=== PATIENT | female | born 1980 | race Two or more races ===

== ENCOUNTER 2019-02-04 14:32 | Emergency (ER) | payer OTHER, MEDICAID ==
[2019-02-04] MEDS ORDERED: ACETAMINOPHEN 325 MG TABLET PO ONE (16:09)
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
--- NOTE | 2019-02-04 17:19 | RADIOLOGY REPORT (SQ) ---
EXAM DESCRIPTION: SHOULDER RIGHT 2 OR MORE VIEWS COMPLETED DATE/TIME: 02/04/2019 4:58 pm REASON FOR STUDY: pain COMPARISON: None. NUMBER OF VIEWS: Three views. TECHNIQUE: Internal rotation, external rotation, and Y view images acquired of the right shoulder. LIMITATIONS: None. FINDINGS: MINERALIZATION: Normal. BONES: No acute fracture or dislocation. No worrisome bone lesions. JOINTS: No dislocation. VISUALIZED LUNGS AND RIBS: No pneumothorax. No rib fracture. SOFT TISSUES: No radiopaque foreign body. OTHER: No other significant finding. IMPRESSION: NO RADIOGRAPHIC EVIDENCE OF ACUTE INJURY. TECHNICAL DOCUMENTATION: JOB ID: [id number] [place]-72 2010 [employer]- All Rights Reserved Reading location - IP/workstation name: [email or web address]
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
[2019-02-04 17:41] VITALS: BP 106/67
== END 2019-02-04 17:44 | disposition home or self-care (01) ==
LOC: ER 14:32
DX: M54.2 Cervicalgia (principal); M25.511 Pain in right shoulder; M54.5 Low back pain; V43.62XA Car passenger injured in collision with other type car in traffic accident, initial encounter; Y92.481 Parking lot as the place of occurrence of the external cause
CPT/HCPCS: 72110; 72125; 99284

== ENCOUNTER 2019-04-21 20:16 | Emergency (ER) | payer MEDICAID, OTHER ==
[2019-04-21 20:43] VITALS: BP 114/68
--- NOTE | 2019-04-21 21:51 | ER Document Report ---
ED Medical Screen (RME) - General Chief Complaint: Shortness Of Breath Stated Complaint: DIFFICULTY BREATHING Time Seen by Provider: 04/21/19 21:49 Mode of Arrival: Ambulatory Information source: Patient Notes: 38-year-old female presented to ED for cough cold congestion runny nose and pain with cough. She does have a history of asthma and anxiety. She states she has had breast augmentation liposuction and 3 C-sections. She states she has not had any fevers. She states she is called her doctor multiple times and they told her to just go to the ER. She is alert oriented respirations regular and unlabored speaking in full sentences walks with a even steady gait. Patient understands Botswanan but does not speak Botswanan well. I have greeted and performed a rapid initial assessment of this patient. A comprehensive ED assessment and evaluation of the patient, analysis of test results and completion of medical decision making process will be conducted by an additional ED providers. TRAVEL OUTSIDE OF THE [place] IN LAST 30 DAYS: No - Related Data Allergies/Adverse Reactions: shellfish derived Allergy (Verified 02/04/19 16:14) Past Medical History Renal/ Medical History: Denies: Hx Peritoneal Dialysis Musculoskeltal Medical History: Reports Hx Arthritis Physical Exam - Vital signs Vitals: Temp Pulse Resp BP Pulse Ox 97.7 F 93 18 114/68 97 04/21/19 20:42 04/21/19 20:42 04/21/19 20:42 04/21/19 20:42 04/21/19 20:42 Course - Vital Signs Vital signs: Temp Pulse Resp BP Pulse Ox 97.7 F 93 18 114/68 97 04/21/19 20:42 04/21/19 20:42 04/21/19 20:42 04/21/19 20:42 04/21/19 20:42
--- NOTE | 2019-04-21 22:44 | ER Document Report ---
ED General - General Chief Complaint: Shortness Of Breath Stated Complaint: DIFFICULTY BREATHING Time Seen by Provider: 04/21/19 21:49 Mode of Arrival: Ambulatory Notes: Patient is a 38-year-old female with asthma that presents to the emergency department for chief complaint of cough and shortness of breath. Patient's been having symptoms for 7 or 8 days, with associated cough, runny nose and congestion. Denies any any fevers. She has been taking DayQuil with some relief of her symptoms, but then it comes right back. She is been using her inhaler, without much improvement, she is on albuterol. Denies any sick contacts that she is aware of, denies any chest pain at this time, and her cough has been nonproductive. Denies any nausea, vomiting, abdominal pain dysuria hematuria, no other complaints at this time. Past Medical History: Anxiety, asthma Past Surgical History: , liposuction, breast augmentation Social History: Denies current tobacco, alcohol or drug use. Family History: Reviewed and noncontributory for presenting illness Allergies: Reviewed, see documented allergy list. REVIEW OF SYSTEMS: Other than noted above, the 12 point review of systems was reviewed with the patient and were negative, all pertinent findings are included in the HPI. PHYSICAL EXAMINATION: Vital signs reviewed, nursing noted reviewed. GENERAL: Well-appearing, well-nourished and in no acute distress. HEAD: Atraumatic, normocephalic. EYES: Eyes appear normal, extraocular movements intact, sclera anicteric, conjunctiva are normal. ENT: nares patent, oropharynx clear without exudates. Moist mucous membranes. NECK: Normal range of motion, supple without lymphadenopathy LUNGS: Dry cough noted on exam, and there is mild expiratory wheezing, at the end of expiration, no increased work of breathing. HEART: Regular rate and rhythm without murmurs ABDOMEN: Soft, nontender, normoactive bowel sounds. No rebound, guarding, or rigidity. No masses appreciated. EXTREMITIES: Nontender, good range of motion, no pitting or edema. NEUROLOGICAL: No focal neurological deficits. Moves all extremities spontaneously Motor and sensory grossly intact on exam. PSYCH: Normal mood, normal affect. SKIN: Warm, Dry, normal turgor, no rashes or lesions noted on exposed skin TRAVEL OUTSIDE OF THE [place] IN LAST 30 DAYS: No - Related Data Allergies/Adverse Reactions: shellfish derived Allergy (Verified 02/04/19 16:14) Past Medical History - General Information source: Patient - Social History Smoking Status: Never Smoker Family History: Reviewed & Not Pertinent Renal/ Medical History: Denies: Hx Peritoneal Dialysis Musculoskeletal Medical History: Reports Hx Arthritis Physical Exam - Vital signs Vitals: Temp Pulse Resp BP Pulse Ox 97.7 F 93 18 114/68 97 04/21/19 20:42 04/21/19 20:42 04/21/19 20:42 04/21/19 20:42 04/21/19 20:42 Course - Re-evaluation Re-evalutation: Patient seen and examined vital signs reviewed. Laboratory data and/or imaging were ordered as appropriate for the patient's presenting symptoms and complaint, with consideration of any critical or life threatening conditions that may be associated with their obtained history and exam as noted above. Patient was treated with DuoNeb breathing treatments, and p.o. steroid Results were reviewed when available and demonstrated negative chest x-ray and blood work The patient was re-evaluated and was stable, lung sounds improved Evaluation was most consistent with URI, mild exacerbation of asthma, advised prednisone therapy, follow-up with her primary care, and to use her albuterol inhaler, every 4 hours if needed. Results were discussed with the patient at this point, after careful consideration I feel that that patient can be discharged from the emergency department, the patient was educated treatments and reasons to return to the emergency department based on their presumed diagnosis as noted above, they were advised to followup with a primary care physician in 2-3 days. Patient was agreeable to plan of care. *Note is created using voice recognition software and may contain spelling, sy ntax or grammatical errors. Laboratory 04/22/19 04/22/19 04/22/19 00:13 00:13 00:13 WBC 10.4 RBC 4.24 Hgb 11.9 L Hct 36.0 MCV 85 MCH 28.1 MCHC 33.1 RDW 14.2 H Plt Count 331 Lymph % (Auto) 26.6 Bonner % (Auto) 5.9 Eos % (Auto) 10.0 H Baso % (Auto) 0.5 Absolute Neuts (auto) 5.9 Absolute Lymphs (auto) 2.8 Absolute Monos (auto) 0.6 Absolute Eos (auto) 1.0 H Absolute Basos (auto) 0.1 Seg Neutrophils % 57.0 Sodium 138.9 Potassium 3.9 Chloride 103 Carbon Dioxide 28 Anion Gap 8 BUN 12 Creatinine 0.72 Est GFR ( Amer) > 60 Est GFR (MDRD) Non-Af > 60 Glucose 122 H Calcium 9.5 Serum HCG, Qual NEGATIVE Chest X-Ray 04/21/19 21:49 IMPRESSION: 1. No acute cardiothoracic abnormality. - Vital Signs Vital signs: Temp Pulse Resp BP Pulse Ox 97.7 F 93 18 114/68 97 04/21/19 20:42 04/21/19 20:42 04/21/19 20:42 04/21/19 20:42 04/21/19 20:42 - Laboratory Result Diagrams: 04/22/19 00:13 04/22/19 00:13 Laboratory results interpreted by me: 04/22/19 04/22/19 00:13 00:13 Hgb 11.9 L RDW 14.2 H Eos % (Auto) 10.0 H Absolute Eos (auto) 1.0 H Glucose 122 H Discharge - Discharge Clinical Impression: URI (upper respiratory infection) Qualifiers: URI type: unspecified URI Qualified Code(s): J06.9 - Acute upper respiratory infection, unspecified Asthma exacerbation Qualifiers: Asthma severity: unspecified severity Asthma persistence: unspecified Qualified Code(s): J45.901 - Unspecified asthma with (acute) exacerbation Condition: Stable Disposition: HOME, SELF-CARE Instructions: Upper Respiratory Illness ([facility]), Asthma ([facility]) Additional Instructions: Please return to the emergency department if your symptoms are worsening or not improving, please take the prescribed prednisone as directed, for the next 5 days, and follow-up with your primary care physician. Please use your albuterol inhaler, 2 puffs, 3 times daily for the next 5 days, and then every 4 hours as needed. Prescriptions: Prednisone 40 mg PO DAILY #20 tablet Referrals: MIRIAM VARGAS MD [ACTIVE STAFF] - Follow up in 3-5 days (or your primary care. ) Print Language: Tamazight
[2019-04-21] MEDS ORDERED: IPRATROPIUM/ALBUTEROL 0.5-2.5 MG/3 ML AMPUL NEB ONE (22:58)
[2019-04-21] MEDS ORDERED: PREDNISONE 20 MG TABLET PO ONE (22:59)
--- NOTE | 2019-04-21 23:25 | RADIOLOGY REPORT (SQ) ---
EXAM DESCRIPTION: [facility]: XR CHEST 2 VIEWS Views: 2 CLINICAL HISTORY: 38 years Female, cough congestion times fa week COMPARISON: None. FINDINGS: The lungs are clear. No pneumothorax or significant pleural effusion. Cardiomediastinal silhouette is within normal limits. Bony structures are unremarkable for age. IMPRESSION: 1. No acute cardiothoracic abnormality.
[2019-04-22 00:33] LABS: ABSOLUTE MONOCYTES (AUTO) 0.6 10^3/uL (0.1-1.4); MEAN CORPUSCULAR HGB CONC 33.1 g/dL (32.0-36.0); TOTAL CELLS COUNTED % (AUTO) 100 %
[2019-04-22 00:37] LABS: ABSOLUTE BASOPHILS # (AUTO) 0.1 10^3/uL (0.0-0.2); ABSOLUTE LYMPHOCYTES (AUTO) 2.8 10^3/uL (0.5-4.7); ABSOLUTE NEUT (AUTO) 5.9 10^3/uL (1.7-8.2); BASOPHILS % (AUTO) 0.5 % (0-2); HEMOGLOBIN 11.9 g/dL (12.0-15.5); LYMPHOCYTES % (AUTO) 26.6 % (13-45); MEAN CORPUSCULAR HEMOGLOBIN 28.1 pg (27.0-33.4); MEAN CORPUSCULAR VOLUME 85 fl (80-97); MONOCYTES % (AUTO) 5.9 % (3-13); PLATELET COUNT 331 10^3/uL (150-450); RED BLOOD COUNT 4.24 10^6/uL (3.72-5.28); RED CELL DISTRIBUTION WIDTH 14.2 % (11.5-14.0); WHITE BLOOD COUNT 10.4 10^3/uL (4.0-10.5)
[2019-04-22 00:52] LABS: ANION GAP 8 (5-19); BLOOD UREA NITROGEN 12 mg/dL (7-20); CALCIUM 9.5 mg/dL (8.4-10.2); CARBON DIOXIDE 28 mmol/L (22-30); CHLORIDE 103 mmol/L (98-107); GLUCOSE 122 mg/dL (75-110); POTASSIUM 3.9 mmol/L (3.6-5.0)
== END 2019-04-22 01:40 | disposition home or self-care (01) ==
LOC: ER 20:16
DX: J45.901 Unspecified asthma with (acute) exacerbation (principal); J06.9 Acute upper respiratory infection, unspecified; R06.02 Shortness of breath; R05 Cough; R09.89 Other specified symptoms and signs involving the circulatory and respiratory systems; R09.81 Nasal congestion
CPT/HCPCS: 36415; 84703; 85025; 80048; 71046; J7512; J7620; 94640; 99285

== ENCOUNTER 2019-05-06 12:24 | Emergency (ER) | payer SELFPAY ==
[2019-05-06] MEDS ORDERED: IPRATROPIUM/ALBUTEROL 0.5-2.5 MG/3 ML AMPUL NEB ONE (13:10)
--- NOTE | 2019-05-06 13:14 | ER Document Report ---
ED Medical Screen (RME) - General Chief Complaint: Chest Pain Stated Complaint: CHEST PAIN Time Seen by Provider: 05/06/19 13:06 Notes: Patient is a 38-year-old female with asthma that presents to the emergency department for chief complaint of cough and shortness of breath. Patient's been having symptoms for 3 weeks with associated cough, runny nose and congestion. Denies any any fevers. She was seen here on April 21 and had a negative chest x-ray and was given a course of prednisone. She states in the interval time. She has not had any improvements of her symptoms. She has been using her albuterol inhaler with minimal to no improvement. Denies any sick contacts that she is aware of, denies any chest pain at this time, and her cough is dry. Denies any nausea, vomiting, abdominal pain dysuria hematuria, no other complaints at this time. [employer] wildlife protector was used EXAM: Well-appearing in no acute distress, nontoxic. Regular rate and cardiac rhythm, mild inspiratory wheezing heard in the right middle lobe all other fie lds were clear I have greeted and performed a rapid initial assessment of this patient. A comprehensive ED assessment and evaluation of the patient, analysis of test results and completion of medical decision making process will be conducted by an additional ED providers. TRAVEL OUTSIDE OF THE [place] IN LAST 30 DAYS: No - Related Data Allergies/Adverse Reactions: shellfish derived Allergy (Verified 02/04/19 16:14) Past Medical History - Social History Chew tobacco use (# tins/day): No Frequency of alcohol use: None Drug Abuse: None Renal/ Medical History: Denies: Hx Peritoneal Dialysis Musculoskeltal Medical History: Reports Hx Arthritis Physical Exam - Vital signs Vitals: Temp Pulse BP Pulse Ox 98.5 F 94 123/67 98 05/06/19 12:39 05/06/19 12:39 05/06/19 12:39 05/06/19 12:39 Course - Vital Signs Vital signs: Temp Pulse Resp BP Pulse Ox 98.5 F 94 123/67 98 05/06/19 12:39 05/06/19 12:39 05/06/19 12:39 05/06/19 12:39
--- NOTE | 2019-05-06 14:43 | RADIOLOGY REPORT (SQ) ---
EXAM DESCRIPTION: CHEST 2 VIEWS COMPLETED DATE/TIME: 05/06/2019 2:32 pm REASON FOR STUDY: cough and wheezing x 3 weeks COMPARISON: 04/21/2019 EXAM PARAMETERS: NUMBER OF VIEWS: two views TECHNIQUE: Digital Frontal and Lateral radiographic views of the chest acquired. RADIATION DOSE: NA LIMITATIONS: none FINDINGS: LUNGS AND PLEURA: No opacities, masses or pneumothorax. No pleural effusion. MEDIASTINUM AND HILAR STRUCTURES: No masses or contour abnormalities. HEART AND VASCULAR STRUCTURES: Heart normal size. No evidence for failure. BONES: No acute findings. HARDWARE: None in the chest. OTHER: No other significant finding. IMPRESSION: NO ACUTE RADIOGRAPHIC FINDING IN THE CHEST. TECHNICAL DOCUMENTATION: JOB ID: [id number] [email or web address]- All Rights Reserved Reading location - IP/workstation name: [email or web address]
[2019-05-06] MEDS ORDERED: DEXAMETHASONE SOD PHOS INJ 10 MG/1 ML VIAL IM ONE (15:33)
--- NOTE | 2019-05-06 15:39 | ER Document Report ---
ED General - General Chief Complaint: Chest Pain Stated Complaint: CHEST PAIN Time Seen by Provider: 05/06/19 13:06 Notes: Patient is a 38-year-old female with asthma that presents to the emergency department for chief complaint of cough and shortness of breath. Patient's been having symptoms for 3 weeks with associated cough, runny nose and congestion. Denies any any fevers. She was seen here on April 21 and had a negative chest x-ray and was given a course of prednisone. She states in the interval time. She has not had any improvements of her symptoms. She has been using her albuterol inhaler with minimal to no improvement. Denies any sick contacts that she is aware of, denies any chest pain at this time, and her cough is dry. Denies any nausea, vomiting, abdominal pain dysuria hematuria, no other complaints at this time. 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 IN LAST 30 DAYS: No - Related Data Allergies/Adverse Reactions: shellfish derived Allergy (Verified 02/04/19 16:14) Past Medical History - Social History Smoking Status: Never Smoker Chew tobacco use (# tins/day): No Frequency of alcohol use: None Drug Abuse: None Family History: Reviewed & Not Pertinent Patient has suicidal ideation: No Patient has homicidal ideation: No Renal/ Medical History: Denies: Hx Peritoneal Dialysis Musculoskeletal Medical History: Reports Hx Arthritis Review of Systems - Review of Systems Constitutional: See HPI EENT: No symptoms reported Cardiovascular: See HPI Respiratory: See HPI Gastrointestinal: See HPI Genitourinary: No symptoms reported Female Genitourinary: See HPI Musculoskeletal: No symptoms reported Skin: No symptoms reported Hematologic/Lymphatic: No symptoms reported Neurological/Psychological: No symptoms reported Physical Exam - Vital signs Vitals: Temp Pulse BP Pulse Ox 98.5 F 94 123/67 98 05/06/19 12:39 05/06/19 12:39 05/06/19 12:39 05/06/19 12:39 - Notes Notes: PHYSICAL EXAMINATION: Reviewed vital signs and charting by RN GENERAL: Alert, interacts well. No acute distress. HEAD: Normocephalic, atraumatic. EYES: Pupils equal and round. Extraocular movements intact. ENT: Oral mucosa moist, tongue midline. NECK: Full range of motion. Trachea midline. LUNGS: Clear to auscultation bilaterally, no wheezes, rales, or rhonchi. No respiratory distress. HEART: Regular rate and rhythm. No murmur ABDOMEN: soft, non-tender. No distention. Bowel sounds present EXTREMITIES: Moves all 4 extremities spontaneously. No edema, No cyanosis. PSYCH: Normal affect, normal mood. SKIN: Warm, dry, normal turgor. No rashes or lesions noted. Course - Re-evaluation Re-evalutation: 05/06/19 15:35 Patient is well-appearing and lungs are clear to auscultation in all joseph. Martti translation was used and she said that the prednisone did not help her and stated that he did not feel well from it. I discussed a dexamethasone injection and the risks involved with it and the potential that it could cause similar side effects but she agreed to receiving the injection. Patient stated that she did feel minimal relief from the DuoNeb's but her lungs are clear and she is moving air. I educated her on the use of an AeroChamber and told her that she needs to follow-up with her primary doctor to consider daily the inhalational steroids. At this time she is in no distress and she is stable for discharge. - Vital Signs Vital signs: Temp Pulse Resp BP Pulse Ox 98.5 F 94 123/67 98 05/06/19 12:39 05/06/19 12:39 05/06/19 12:39 05/06/19 12:39 Discharge - Discharge Clinical Impression: Asthma Qualifiers: Asthma severity: mild Asthma persistence: intermittent Asthma complication type: uncomplicated Qualified Code(s): J45.20 - Mild intermittent asthma, uncomplicated Condition: Good Disposition: HOME, SELF-CARE Additional Instructions: You were seen in the emergency department this morning for an asthma exacerbation. After receiving breathing treatments your lungs were clear and I did not hear any wheezing. You received a steroid injection which will help with your symptoms. You will not feel the effects of the steroid for probably about 12 hours. It should then last for about 3 to 4 days. It is important that you follow-up with your primary doctor to better manage your asthma and get referral to a control operator flow coat. We do not have a control operator flow coat loss prevention supervisor today like we talked about and I apologize for that so I cannot give you direct referral. Please return to the emergency department if you develop severe shortness of breath, your throat starts to close up, severe chest pain, you pass out, or you have any other concerning symptoms. Esta maana lo vieron en el departamento de emergencias por uzma exacerbacin del asma. Despus de recibir tratamientos de respiracin, sheela pulmones estaban limpios y no escuch ningn silbido. Recibi uzma inyeccin de esteroides que ayudar con sheela sntomas. No sentir los efectos del esteroide luis aproximadamente 12 horas. Debera durar entre 3 y 4 kaur. Es importante que realice un seguimiento con prado mdico de atencin primaria para controlar mejor prado asma y obtener uzma derivacin a un neumlogo. No tenemos un neumlogo de ayse hoy gisella hablamos y me disculpo por eso, as que no puedo darle uzma derivacin directa. Regrese al departamento de emergencias si presenta dificultad para respirar severa, prado garganta comienza a cerrarse, dolor de pecho ajck, se desmaya o tiene cualquier otro sntoma preocupante.
[2019-05-06 16:01] VITALS: BP 109/70
--- NOTE | 2019-05-06 21:01 | EKG REPORT ---
SEVERITY:- NORMAL ECG - SINUS RHYTHM : Confirmed by: Teresa Gillespie MD 06-May-2019 21:00:27
== END 2019-05-06 16:05 | disposition home or self-care (01) ==
LOC: ER 12:24
DX: J45.20 Mild intermittent asthma, uncomplicated (principal); Z79.899 Other long term (current) drug therapy; R05 Cough; R06.02 Shortness of breath; R09.89 Other specified symptoms and signs involving the circulatory and respiratory systems; Z91.013 Allergy to seafood
CPT/HCPCS: 93005; 94640; 99285; 96374; 71046; 93010; J1100; J7620

== ENCOUNTER 2019-06-13 01:29 | Emergency (ER) | payer SELFPAY ==
[2019-06-13] MEDS ORDERED: ALBUTEROL SULFATE 0.083% NEB 2.5 MG/3 ML AMPUL NEB ONE (03:09)
[2019-06-13] MEDS ORDERED: IPRATROPIUM BROMIDE 0.02% NEB 0.5 MG/2.5 ML AMPUL NEB ONE (03:09)
[2019-06-13] MEDS ORDERED: PREDNISONE 20 MG TABLET PO ONE (03:09)
--- NOTE | 2019-06-13 03:32 | ER Document Report ---
ED Respiratory Problem - General Chief Complaint: Breathing Difficulty Stated Complaint: DIIFFICULTY BREATHING Information source: Patient TRAVEL OUTSIDE OF THE [place] IN LAST 30 DAYS: No - HPI Patient complains to provider of: Asthma, Cough. No: Chest pain, CHF, COPD, Hurts to breath, Short of breath, Other Onset: Yesterday Duration: Continuous. No: Better, Gone now, Intermittent episodes, Worse/persistent Initiating Event: No: Allergy, Aspiration/Choking, Exertion, Exposure to chemicals, Exposure to dust, Exposure to fumes, Exposure to mold, Exposure to smoke, Out of meds, Sports/exercise, URI, Other Quality of pain: denies: No pain, Achy, Burning, Cramping, Dull, Fullness, Pressure, Sharp, Stabbing, Throbbing, Other Severity: Mild Pain Level: Denies Context: denies: DVT, Factor V Leiden, Hx asthma, Hx CHF, Hx COPD, Malignancy, , Recent cardiac event, Recent foreign travel, Recent long distance trvl, Recent immobilization, Recent surgery, Smoker, Other Short of Breath: Mild Chest pain/discomfort: denies: Center, Constant, Heaviness, Intermittent, Left, Pain, Radiates to arm, Radiates to back, Radiates to jaw, Right, Tightness, Worse with deep breaths Cough: Nonproductive. denies: Productive, Stridor, Suspect aspiration Sputum amount: denies: None, Scant, Small, Moderate, Large, Copious Associated symptoms: Cough, Short of breath. denies: None, Ankle/leg swelling, Allergy/hay fever, Anxiety, Bloody cough, Chest pain/discomfort, Chills, Congestion, Dental decay, Difficulty breathing, Earache, Extertional dyspnea, Facial pain, Fever, Headache, Heart racing, Hoarseness, Hurts to breathe, Hyperventilation, Jaw pain, Leg/calf/joint pain, Muscle spasms, Orthopnea, PND, Runny nose, Sinus pain/pressure, Sore Throat, Sweaty, Tingling face, Tingling hands, Unable to swallow, Toothache, Wheezing, Other - Related Data Allergies/Adverse Reactions: shellfish derived Allergy (Verified 02/04/19 16:14) Home Medications: Albuterol Inhaler Past Medical History - Social History Smoking Status: Never Smoker Frequency of alcohol use: Occasional Family History: Reviewed & Not Pertinent Patient has suicidal ideation: No Patient has homicidal ideation: No Renal/ Medical History: Denies: Hx Peritoneal Dialysis Musculoskeletal Medical History: Reports Hx Arthritis Review of Systems - Review of Systems Constitutional: denies: No symptoms reported, See HPI, Chills, Diaphoresis, Fever, Malaise, Weakness, Other, Weight gain, Weight loss, Recent illness EENT: denies: No symptoms reported, See HPI, Eye pain, Eye discharge, Blurred vision, Tearing, Double vision, Ear pain, Ear discharge, Nose pain, Nose congestion, Nose discharge, Sinus pressure, Sinus discharge, Throat pain, Difficulty swallowing, Throat swelling, Mouth pain, Mouth swelling, Dental problem, Vertigo, Other Cardiovascular: denies: No symptoms reported, See HPI, Chest pain, Palpitations, Heart racing, Orthopnea, Dyspnea, Syncope, Dizziness, Lightheaded, Edema, Other, Paroxysmal Nocturnal Dysp Respiratory: Cough, Short of breath, Wheezing. denies: No symptoms reported, See HPI, Hurts to breathe, Hemoptysis, Sputum, Stridor, Other Gastrointestinal: denies: No symptoms reported, See HPI, Abdomen distended, Abdominal pain, Diarrhea, Nausea, Vomiting, Constipation, Blood streaked bowels, Poor appetite, Poor fluid intake, Blood in vomit, Black stools, Rectal bleeding, Last bowel movement, Fecal incontinence, Other Genitourinary: denies: No symptoms reported, See HPI, Burning, Dysuria, Discharge, Frequency, Flank pain, Hematuria, Incontinence, Pain, Urgency, Retention, Other Female Genitourinary: denies: No symptoms reported, See HPI, Last menstrual period, , Post menopausal, Heavy/abnormal periods, Irregular period, Vaginal bleeding, Vaginal discharge, Vaginal odor, Painful intercourse, Other -: Yes All other systems reviewed and negative Physical Exam - Vital signs Vitals: Temp Pulse Resp BP Pulse Ox 98.2 F 90 17 112/60 96 06/13/19 01:42 06/13/19 01:42 06/13/19 01:42 06/13/19 01:42 06/13/19 01:42 Notes: PHYSICAL EXAMINATION: GENERAL: Well-appearing, well-nourished and in no acute distress. HEAD: Atraumatic, normocephalic. EYES: Pupils equal round and reactive to light, extraocular movements intact, sclera anicteric, conjunctiva are normal. ENT: nares patent, oropharynx clear without exudates. Moist mucous membranes. NECK: Normal range of motion, supple without lymphadenopathy LUNGS: Wheezes heard bilaterally no rales or rhonchi mild respiratory distress HEART: Regular rate and rhythm without murmurs ABDOMEN: Soft, nontender, normoactive bowel sounds. No guarding, no rebound. No masses appreciated. EXTREMITIES: Normal range of motion, no pitting or edema. No cyanosis. NEUROLOGICAL: No focal neurological deficits. Moves all extremities spontaneously and on command. PSYCH: Normal mood, normal affect. SKIN: Warm, Dry, normal turgor, no rashes or lesions noted. Course - Vital Signs Vital signs: Temp Pulse Resp BP Pulse Ox 98.2 F 90 17 112/60 96 06/13/19 01:42 06/13/19 01:42 06/13/19 01:42 06/13/19 01:42 06/13/19 01:42 - Diagnostic Test Radiology reviewed: Image reviewed Radiology results interpreted by me: 06/13/19 04:48 X-ray read by myself in the absence of radiologist one view shows no infiltrates or effusions normal heart and mediastinum normal bony structures. - Transfer of Care Notes: 06/13/19 04:50 Note after nebulizers and steroids patient is much better she will be sent home with oral MDI and prednisone and Hycodan instructions to follow-up with her regular doctor. 06/13/19 04:57 Discharge - Discharge Clinical Impression: Bronchitis, acute, with bronchospasm Condition: Good Disposition: HOME, SELF-CARE Instructions: Bronchitis With Bronchospasm (Wheezing) ([facility]) Additional Instructions: Return if worse follow-up with your regular doctor Prescriptions: Albuterol Sulfate [Albuterol Sulfate Hfa] 8.5 gm IH Q6 PRN #1 [id number] PRN Reason: Shortness Of Breath Prednisone [Deltasone 20 mg Tablet] 2 tab PO DAILY 5 Days #10 tablet Hydrocodone Bit/Homatropine [Hycodan Syrup 5-1.5 mg/5 ml Ud Cup] 5 ml PO Q12 #120 ml Print Language: Estonian
--- NOTE | 2019-06-13 04:53 | RADIOLOGY REPORT (SQ) ---
CLINICAL HISTORY: sob COMPARISON: May 06, 2019. TECHNIQUE: XR CHEST 1 VIEW 06/13/2019 3:10 AM CDT FINDINGS: Cardiac silhouette is normal in size. Lungs are clear without consolidation, atelectasis, mass or edema. There is no pleural effusion. There is no pneumothorax. There are no acute osseous findings. IMPRESSION: Clear lungs.
[2019-06-13 05:52] VITALS: BP 113/68
--- NOTE | 2019-06-15 00:27 | EKG REPORT ---
SEVERITY:- NORMAL ECG - SINUS RHYTHM : Confirmed by: Shyann Brenner 15-Jun-2019 00:26:54
== END 2019-06-13 05:52 | disposition home or self-care (01) ==
LOC: ER 01:29
DX: J45.909 Unspecified asthma, uncomplicated (principal); R05 Cough; R06.02 Shortness of breath
CPT/HCPCS: 93005; 94640 ×2; 99285; 71045; 93010; J7512; J3490

== ENCOUNTER 2019-07-12 03:58 | Emergency (ER) | payer SELFPAY ==
[2019-07-12] MEDS ORDERED: IPRATROPIUM/ALBUTEROL 0.5-2.5 MG/3 ML AMPUL NEB ONE ×2 (04:10→04:11)
[2019-07-12] MEDS ORDERED: METHYLPREDNISOLONE INJ 125 MG/2 ML SDV IV ONE (04:10)
[2019-07-12] MEDS ORDERED: ALBUTEROL SULFATE 0.083% NEB 2.5 MG/3 ML AMPUL NEB ONE (04:11)
[2019-07-12] MEDS: ALBUTEROL SULFATE 0.083% NEB 2.5 MG/3 ML AMPUL NEB SCH ×2 (04:16→06:09)
--- NOTE | 2019-07-12 04:37 | RADIOLOGY REPORT (SQ) ---
EXAM DESCRIPTION: XR CHEST 1 VIEW COMPLETED DATE/TME: 07/12/2019 04:10 CLINICAL HISTORY: 39 years, Female, sob COMPARISON: 06/13/2019 chest NUMBER OF VIEWS: 1 TECHNIQUE: Portable chest LIMITATIONS: None. FINDINGS: The heart size is normal. Lungs are clear. No pneumothorax IMPRESSION: No acute cardiopulmonary process copyright 2010 [facility]- All Rights Reserved
--- NOTE | 2019-07-12 05:33 | ER Document Report ---
ED Respiratory Problem - General Chief Complaint: Breathing Difficulty Stated Complaint: TROUBLE BREATHING Time Seen by Provider: 07/12/19 05:24 Primary Care Provider: WARREN GRAY FNP [Primary Care Provider] - Follow up as needed Mode of Arrival: Ambulatory Information source: Relative Notes: This 39-year-old woman presents to the emergency department with a history of recurrent asthma exacerbation with bronchospasms and shortness of breath. She has been using a rescue inhaler and also having episodes of coughing and shortness of breath. Apparently has been seen in the emergency department on several occasions. TRAVEL OUTSIDE OF THE [place] IN LAST 30 DAYS: No - Related Data Allergies/Adverse Reactions: shellfish derived Allergy (Verified 02/04/19 16:14) Past Medical History - Social History Smoking Status: Never Smoker Family History: Reviewed & Not Pertinent Patient has suicidal ideation: No Patient has homicidal ideation: No Renal/ Medical History: Denies: Hx Peritoneal Dialysis Musculoskeletal Medical History: Reports Hx Arthritis Review of Systems - Review of Systems Notes: REVIEW OF SYSTEMS GENERAL: Negative for any nausea, vomiting, fevers, chills, or weight loss. NEUROLOGIC: Negative for any blurry vision, blind spots, double vision, facial asymmetry, dysphagia, dysarthria, hemiparesis, hemisensory deficits, vertigo, ataxia. HEENT: Negative for any head trauma, neck trauma, neck stiffness, photophobia, p honophobia, sinusitis, rhinitis. CARDIAC: Negative for any chest pain, dyspnea on exertion, paroxysmal nocturnal dyspnea, peripheral edema. PULMONARY: + shortness of breath, +wheezing, GASTROINTESTINAL: Negative for any abdominal pain, nausea, vomiting, bright red blood per rectum, melena. GENITOURINARY: Negative for any dysuria, hematuria, incontinence. INTEGUMENTARY: Negative for any rashes, cuts, insect bites. RHEUMATOLOGIC: Negative for any joint pains, photosensitive rashes, history of vasculitis or kidney problems. HEMATOLOGIC: Negative for any abnormal bruising, frequent infections or bleeding. Physical Exam - Vital signs Vitals: Temp Pulse Resp BP Pulse Ox 97.6 F 125 H 22 H 110/53 L 92 07/12/19 04:02 07/12/19 04:02 07/12/19 04:02 07/12/19 04:02 07/12/19 04:02 - Notes Notes: Reviewed vital signs and nursing note as charted by RN. CONSTITUTIONAL: Well-appearing, well-nourished; attentive, 39-year-old woman mild respiratory distress HEAD: Normocephalic; atraumatic; No swelling EYES: PERRL; Conjunctivae clear, no drainage; EOMI ENT: External ears without lesions; External auditory canal is patent; TMs without erythema, landmarks clear and well visualized; no rhinorrhea; Pharynx without erythema or lesions, no tonsillar hypertrophy, airway patent, mucous membranes pink and moist NECK: Supple, no cervical lymphadenopathy, no masses CARD: Tachycardic rate and rhythm; no murmurs, no rubs, no gallops, RESP: Bilateral inspiratory wheezing respiratory rate and effort are normal. There is normal chest excursion. No respiratory distress, no retractions, no stridor, no nasal flaring, no accessory muscle use. The lungs are clear to auscultation bilaterally, no wheezing, no rales, no rhonchi. ABD/GI: Normal bowel sounds; non-distended; soft, non-tender, no rebound, no guarding, no palpable organomegaly EXT: Normal ROM in all joints; non-tender to palpation; no effusions, no edema SKIN: Normal color for age and race; warm; dry; good turgor; no acute lesions noted NEURO: No facial asymmetry; Moves all extremities equally; Motor and sensory function intact Course - Re-evaluation Re-evalutation: 07/12/19 05:35 Patient is given 3 nebulizer treatments, Solu-Medrol in the emergency department labs and chest x-ray are performed. Patient is significantly improved and will be discharged home with steroids, antibiotics, and benzoate for cough. - Vital Signs Vital signs: Temp Pulse Resp BP Pulse Ox 97.6 F 125 H 30 H 113/77 91 L 07/12/19 04:02 07/12/19 04:02 07/12/19 04:11 07/12/19 04:10 07/12/19 04:11 - Diagnostic Test Radiology reviewed: Image reviewed, Reports reviewed Radiology results interpreted by me: 07/12/19 05:37 Chest x-ray was performed, no acute cardiopulmonary findings. - EKG Interpretation by [place] EKG shows normal: Sinus rhythm, Intervals, QRS Complexes, ST-T Waves Rate: Tachycardia Discharge - Discharge Clinical Impression: Bronchospasm, acute, Bronchitis Asthma exacerbation Qualifiers: Asthma severity: moderate Asthma persistence: unspecified Qualified Code(s): J45.901 - Unspecified asthma with (acute) exacerbation Condition: Stable Disposition: HOME, SELF-CARE Instructions: Asthma ([facility]), Bronchitis ([facility]) Referrals: WARREN GRAY FNP [Primary Care Provider] - Follow up as needed
[2019-07-12 07:02] VITALS: BP 111/67
--- NOTE | 2019-07-12 11:49 | EKG REPORT ---
SEVERITY:- OTHERWISE NORMAL ECG - SINUS TACHYCARDIA : Confirmed by: Teresa Gillespie MD 12-Jul-2019 11:48:42
== END 2019-07-12 07:02 | disposition home or self-care (01) ==
LOC: ER 03:58
DX: J45.901 Unspecified asthma with (acute) exacerbation (principal); R06.02 Shortness of breath
CPT/HCPCS: 93005; 94640 ×2; 99285; 96374; 71045; 93010; J2930; J7620

== ENCOUNTER 2019-08-20 19:41 | Emergency (ER) | payer SELFPAY ==
[2019-08-20] MEDS ORDERED: IPRATROPIUM/ALBUTEROL 0.5-2.5 MG/3 ML AMPUL NEB ONE ×2 (20:59→23:21)
[2019-08-20] MEDS ORDERED: METHYLPREDNISOLONE INJ 125 MG/2 ML SDV IV ONE (21:00)
--- NOTE | 2019-08-20 21:03 | ER Document Report ---
ED Medical Screen (RME) - General Chief Complaint: Cough Stated Complaint: COUGH,DIFFICULTY BREATHING Time Seen by Provider: 08/20/19 20:51 Primary Care Provider: WARREN GRAY FNP [Primary Care Provider] - Follow up as needed Notes: Patient is a 39-year-old female with a history of asthma who presents to the emergency department with shortness of breath and difficulty breathing. She has had some rhinorrhea. She also has a history of asthma. She had an albuterol inhaler at home, but it is empty. Patient is primarily Hebrew-speaking and her friend who is at bedside was there for translation. Patient states that when she was seen here a month ago, she did very well, but since she does not have a primary care provider, she has not been able to get medications she needs. Exam: Expiratory wheezes noted in right lung field. I have greeted and performed a rapid initial assessment of this patient. A comprehensive ED assessment and evaluation of the patient, analysis of test results and completion of medical decision making process will be conducted by an additional ED providers. TRAVEL OUTSIDE OF THE [place] IN LAST 30 DAYS: No - Related Data Allergies/Adverse Reactions: shellfish derived Allergy (Verified 02/04/19 16:14) Past Medical History Renal/ Medical History: Denies: Hx Peritoneal Dialysis Musculoskeltal Medical History: Reports Hx Arthritis Physical Exam - Vital signs Vitals: Temp Pulse Resp BP Pulse Ox 98.3 F 135 H 20 121/75 95 08/20/19 20:09 08/20/19 20:09 08/20/19 20:09 08/20/19 20:09 08/20/19 20:09 Course - Vital Signs Vital signs: Temp Pulse Resp BP Pulse Ox 98.3 F 135 H 20 121/75 95 08/20/19 20:09 08/20/19 20:09 08/20/19 20:09 08/20/19 20:09 08/20/19 20:09 Doctor's Discharge - Discharge Referrals: WARREN GRAY FNP [Primary Care Provider] - Follow up as needed
--- NOTE | 2019-08-20 22:04 | RADIOLOGY REPORT (SQ) ---
EXAM DESCRIPTION: CLINICAL HISTORY: 39 years Female cough COMPARISON: 07/12/2019. FINDINGS: The cardiomediastinal silhouette appears unremarkable. No consolidating infiltrates or pleural effusions. No pneumothorax. IMPRESSION: No acute abnormality is identified.
[2019-08-20] MEDS ORDERED: PREDNISONE 20 MG TABLET PO ONE (22:29)
--- NOTE | 2019-08-20 22:31 | ER Document Report ---
ED Respiratory Problem - General Chief Complaint: Shortness Of Breath Stated Complaint: COUGH,DIFFICULTY BREATHING Time Seen by Provider: 08/20/19 20:51 Primary Care Provider: WARREN GRAY FNP [COMMUNITY BASED STAFF] - Follow up as needed Notes: Patient is a 39-year-old female that comes emergency department for chief complaint of wheezing, cough, difficulty breathing. Patient has had this intermittently over the past couple months, last month she did have steroids and after steroids her symptoms completely resolved. She has run out of her albuterol inhaler as well. She denies smoking. She states she is waiting for her insurance to clear so she can have primary care follow-up and has been unable to see them as a result. She denies , any daily medications, any other past medical history. Significant other at bedside. TRAVEL OUTSIDE OF THE [place] IN LAST 30 DAYS: No - Related Data Allergies/Adverse Reactions: shellfish derived Allergy (Verified 02/04/19 16:14) Past Medical History - General Information source: Patient - Social History Smoking Status: Never Smoker Frequency of alcohol use: None Drug Abuse: None Lives with: Family Family History: Reviewed & Not Pertinent Patient has suicidal ideation: No Patient has homicidal ideation: No Pulmonary Medical History: Reports: Hx Asthma Renal/ Medical History: Denies: Hx Peritoneal Dialysis Musculoskeletal Medical History: Reports Hx Arthritis Surgical Hx: Negative - Immunizations Immunizations up to date: Yes Hx Diphtheria, Pertussis, Tetanus Vaccination: Yes Review of Systems - Review of Systems Constitutional: No symptoms reported EENT: No symptoms reported Cardiovascular: No symptoms reported Respiratory: See HPI Gastrointestinal: No symptoms reported Genitourinary: No symptoms reported Female Genitourinary: No symptoms reported Musculoskeletal: No symptoms reported Skin: No symptoms reported Hematologic/Lymphatic: No symptoms reported Neurological/Psychological: No symptoms reported Physical Exam - Vital signs Vitals: Temp Pulse Resp BP Pulse Ox 98.3 F 135 H 20 121/75 95 08/20/19 20:09 08/20/19 20:09 08/20/19 20:09 08/20/19 20:09 08/20/19 20:09 - Notes Notes: GENERAL: Alert, interacts well. No acute distress. HEAD: Normocephalic, atraumatic. EYES: Pupils equal, round, and reactive to light. Extraocular movements intact. ENT: Oral mucosa moist, tongue midline. Oropharynx unremarkable. Airway patent. Nares patent, no nasal septal hematoma, TM's intact. NECK: Full range of motion. Supple. Trachea midline. LUNGS: Borderline tachypnea, expiratory wheezes, clear lungs otherwise. No respiratory distress. Speaks in full sentences. HEART: Borderline tachycardic, normal rhythm, no murmur ABDOMEN: Soft, non-tender. Non-distended. Bowel sounds present in all 4 quadrants. GENITOURINARY: Deferred EXTREMITIES: Moves all 4 extremities spontaneously. No edema, normal radial and dorsalis pedis pulses bilaterally. No cyanosis. BACK: no cervical, thoracic, lumbar midline tenderness. No saddle anesthesia, normal distal neurovascular exam. Moves all extremities in full range of motion. NEUROLOGICAL: Alert and oriented x3. Normal speech. Cranial nerves II through XII grossly intact. PSYCH: Normal affect, normal mood. SKIN: Warm, dry, normal turgor. No rashes or lesions noted. Course - Re-evaluation Re-evalutation: On my evaluation patient is expiratory wheezes and borderline tachypnea. Borderline tachycardia. No labored breathing, speaks in full sentences, no hypoxia. Giving DuoNeb, steroids. Chest x-ray unremarkable. After multiple nebs wheezing resolved. Patient states she feels much better. Tachycardia resolved, she is still not hypoxic. Very well-appearing on reevaluation. Provided with albuterol for home, steroids, discussed follow-up, discussed return precautions. Patient states understanding and agreement with plan. Stable at time of discharge. - Vital Signs Vital signs: Temp Pulse Resp BP Pulse Ox 98.8 F 101 H 18 105/66 92 08/21/19 00:02 08/21/19 00:02 08/21/19 00:02 08/21/19 00:02 08/21/19 00:02 - EKG Interpretation by Me Additional EKG results interpreted by me: EKG shows sinus tachycardia at a rate of 116, normal axis, QTC of 428. No T wave inversions or ST segment changes in consecutive leads. Discharge - Discharge Clinical Impression: Shortness of breath, Wheezing Asthma exacerbation Qualifiers: Asthma severity: mild Asthma persistence: intermittent Qualified Code(s): J45.21 - Mild intermittent asthma with (acute) exacerbation Condition: Stable Disposition: HOME, SELF-CARE Additional Instructions: Your exam shows an exacerbation of asthma, use the albuterol with a spacer, take the prednisone until it is gone. Follow-up with primary care for additional care. Come back if you are worse including fever, difficulty breathing, or any other concerning or worsening symptoms. Winkler examen muestra uzma exacerbacin del asma, use el albuterol con un espaciador, tome la prednisona hasta que desaparezca. Seguimiento con atencin primaria para atencin adicional. Regrese si est peor, incluyendo fiebre, dificultad para respirar o cualquier otro sntoma preocupante o que empeore. Prescriptions: Prednisone [Deltasone 20 mg Tablet] 3 tab PO DAILY 5 Days #15 tablet Albuterol Sulfate [Proair HFA Inhalation Aerosol 8.5 gm MDI] 2 puff IH Q4H PRN #1 mdi PRN Reason: Forms: Return to Work Referrals: WARREN GRAY FNP [COMMUNITY BASED STAFF] - Follow up as needed
[2019-08-20] MEDS ORDERED: ALBUTEROL SULFATE HFA (90 MCG/PUFF) 8 GM MDI (1 MDI/ER DISP) IH ONE (23:44)
[2019-08-21 00:03] VITALS: BP 105/66
--- NOTE | 2019-08-21 16:27 | EKG REPORT ---
SEVERITY:- BORDERLINE ECG - SINUS TACHYCARDIA BORDERLINE T ABNORMALITIES, INFERIOR LEADS : Confirmed by: Teresa Gillespie MD 21-Aug-2019 16:25:54
== END 2019-08-21 00:03 | disposition home or self-care (01) ==
LOC: ER 19:41
DX: J45.21 Mild intermittent asthma with (acute) exacerbation (principal); R06.02 Shortness of breath; R05 Cough; R00.0 Tachycardia, unspecified; Z91.013 Allergy to seafood
CPT/HCPCS: 93005; 94640 ×2; 99285; 71046; 93010; J7512; J3490; J7620

== ENCOUNTER 2019-09-24 23:56 | Emergency (ER) | payer SELFPAY ==
[2019-09-25 01:57] LABS: A TYPE INFLUENZA AG NEGATIVE (NEGATIVE); B INFLUENZA AG NEGATIVE (NEGATIVE)
[2019-09-25] MEDS ORDERED: IPRATROPIUM/ALBUTEROL 0.5-2.5 MG/3 ML AMPUL NEB ONE (05:17)
[2019-09-25] MEDS ORDERED: METHYLPREDNISOLONE INJ 125 MG/2 ML SDV IM ONE (05:17)
[2019-09-25 05:32] VITALS: BP 112/69
--- NOTE | 2019-09-25 05:45 | ER Document Report ---
ED General - General Chief Complaint: Flu Symptoms Stated Complaint: COUGH FEVER BODY PAIN Time Seen by Provider: 09/25/19 04:25 Notes: 39-year-old female with past medical history of asthma presents with cough and congestion for the past few weeks. Patient has associated wheezing and shortness of breath. Patient states it feels like her usual asthma exacerbation. Patient has been here multiple times in this ER for the same complaint and states she wants the same medications that she got last time because they helped. Patient states she has tried to get an appointment with her PCP however they did not have any available openings until October. Denies fever or chest pain. TRAVEL OUTSIDE OF THE [place] IN LAST 30 DAYS: No - Related Data Allergies/Adverse Reactions: shellfish derived Allergy (Verified 02/04/19 16:14) Home Medications: Prednisone Past Medical History - Social History Smoking Status: Never Smoker Family History: Reviewed & Not Pertinent Patient has suicidal ideation: No Patient has homicidal ideation: No Pulmonary Medical History: Reports: Hx Asthma Renal/ Medical History: Denies: Hx Peritoneal Dialysis Musculoskeletal Medical History: Reports Hx Arthritis - Immunizations Immunizations up to date: Yes Hx Diphtheria, Pertussis, Tetanus Vaccination: Yes Review of Systems - Review of Systems Notes: Constitutional: Negative for fever. HENT: Negative for sore throat. Eyes: Negative for visual changes. Cardiovascular: Negative for chest pain. Respiratory: Positive for shortness of breath and cough. Gastrointestinal: Negative for abdominal pain, vomiting or diarrhea. Genitourinary: Negative for dysuria. Musculoskeletal: Negative for back pain. Skin: Negative for rash. Neurological: Negative for headaches, weakness or numbness. 10 point ROS negative except as marked above and in HPI. Physical Exam - Vital signs Vitals: Temp Pulse Resp BP Pulse Ox 98.4 F 93 20 113/99 H 98 09/25/19 00:22 09/25/19 00:22 09/25/19 00:22 09/25/19 00:22 09/25/19 00:22 - Notes Notes: GENERAL: Well-appearing, well-nourished and in no acute distress. HEAD: Atraumatic, normocephalic. EYES: Extraocular movements intact, sclera anicteric, conjunctiva are normal. NECK: Normal range of motion, supple without lymphadenopathy or JVD. LUNGS: Mild expiratory wheezing. No accessory muscle use. No tripoding. No cyanosis. HEART: Regular rate and rhythm without murmurs, rubs or gallops. ABDOMEN: Soft, nontender, normoactive bowel sounds. No guarding, no rebound. No masses appreciated. EXTREMITIES: Normal range of motion, no pitting or edema. No clubbing or cyanosis. NEUROLOGICAL: Cranial nerves II through XII grossly intact. Normal speech, normal gait. PSYCH: Normal mood, normal affect. SKIN: Warm, Dry, normal turgor, no rashes or lesions noted. Course - Re-evaluation Re-evalutation: 09/25/19 nontoxic, well-appearing female presents for asthma exacerbation. Patient has run out of her medication. Patient has been seen in several times in this ER for the same complaint and states she would like the medicine she got last time because it helped. Mild expiratory wheezes heard. No signs of respiratory distress. Patient is not hypoxic or tachycardic. DuoNeb ordered. Solu-Medrol IM ordered. Patient to be prescribed prednisone, Tessalon Perles, and albuterol inhaler. Patient given close follow-up with PCP. Strict return precautions given. Patient voices understanding and agrees with plan of care. - Vital Signs Vital signs: Temp Pulse Resp BP Pulse Ox 98.2 F 98 16 112/69 95 09/25/19 05:31 09/25/19 05:31 09/25/19 05:31 09/25/19 05:31 09/25/19 05:31 Discharge - Discharge Clinical Impression: Asthma exacerbation Qualifiers: Asthma severity: mild Asthma persistence: intermittent Qualified Code(s): J45.21 - Mild intermittent asthma with (acute) exacerbation Condition: Stable Disposition: HOME, SELF-CARE Instructions: Asthma (COUNT INCLUDES THE [facility]) Additional Instructions: Please take medications as prescribed. Please follow-up with your primary care doctor in 3 to 5 days. Return to ER for any worsening symptoms, including worsening shortness of breath, fever, coughing up blood, chest pain, or any other symptoms that are concerning to you. Prescriptions: Benzonatate [Tessalon Perles 100 mg Capsule] 100 mg PO Q8HP PRN #40 capsule PRN Reason: Prednisone [Deltasone 20 mg Tablet] 1 tab PO BID 5 Days #10 tablet Albuterol Sulfate [Proair HFA Inhalation Aerosol 8.5 gm MDI] 2 puff IH Q4H PRN #1 mdi PRN Reason: Referrals: [facility] [Provider Group] - Follow up in 3-5 days
== END 2019-09-25 05:56 | disposition home or self-care (01) ==
LOC: ER 23:56
DX: J45.21 Mild intermittent asthma with (acute) exacerbation (principal); R05 Cough; R50.9 Fever, unspecified; M79.10 Myalgia, unspecified site
CPT/HCPCS: 94640; 99283; 96372; 87804; J2930; J7620

== ENCOUNTER 2019-10-26 00:02 | Emergency (ER) | payer SELFPAY ==
[2019-10-26] MEDS ORDERED: METHYLPREDNISOLONE INJ 125 MG/2 ML SDV IV ONE (00:29)
[2019-10-26] MEDS ORDERED: IPRATROPIUM/ALBUTEROL 0.5-2.5 MG/3 ML AMPUL NEB ONE (00:31)
--- NOTE | 2019-10-26 00:35 | ER Document Report ---
ED Medical Screen (RME) - General Chief Complaint: Productive Cough Stated Complaint: COUGH/TIGHT CHEST/FEVER Time Seen by Provider: 10/26/19 00:29 Mode of Arrival: Ambulatory Information source: Patient Notes: 39-year-old female presented to ED for shortness of breath very severe tightness in her chest. She is asthmatic. She was just treated for asthma. She speaks Urdu and her daughter says she just got finished with her last asthma treatment. Patient also states she has pain in the right flank and right chest area. Lung sounds are very tight the only lung sounds I hear or high-pitched wheezes inspiratory and expiratory. I have spoken to Dr. Mendez. He recommended magnesium Solu-Medrol IV fluids and continuous albuterol treatments. These have been ordered. I have greeted and performed a rapid initial assessment of this patient. A comprehensive ED assessment and evaluation of the patient, analysis of test results and completion of medical decision making process will be conducted by an additional ED providers. TRAVEL OUTSIDE OF THE [place] IN LAST 30 DAYS: No - Related Data Allergies/Adverse Reactions: shellfish derived Allergy (Verified 02/04/19 16:14) Past Medical History Pulmonary Medical History: Reports: Hx Asthma Renal/ Medical History: Denies: Hx Peritoneal Dialysis Musculoskeltal Medical History: Reports Hx Arthritis - Immunizations Immunizations up to date: Yes Hx Diphtheria, Pertussis, Tetanus Vaccination: Yes Physical Exam - Vital signs Vitals: Temp Pulse Resp BP Pulse Ox 98.1 F 120 H 16 106/70 97 10/26/19 00:17 10/26/19 00:17 10/26/19 00:17 10/26/19 00:17 10/26/19 00:17 Course - Vital Signs Vital signs: Temp Pulse Resp BP Pulse Ox 98.1 F 120 H 16 106/70 97 10/26/19 00:17 10/26/19 00:17 10/26/19 00:17 10/26/19 00:17 10/26/19 00:17
[2019-10-26] MEDS ORDERED: ALBUTEROL SULFATE 0.083% NEB 2.5 MG/3 ML AMPUL NEB STA (00:36)
[2019-10-26] MEDS ORDERED: NORMAL SALINE 1000 ML 1,000 ML IV ONE (00:38)
[2019-10-26] MEDS ORDERED: ALBUTEROL SULFATE 0.083% NEB 2.5 MG/3 ML AMPUL NEB SCH (00:45)
[2019-10-26 00:50] LABS: ABSOLUTE BASOPHILS # (AUTO) 0.1 10^3/uL (0.0-0.2); ABSOLUTE EOSINOPHILS # (AUTO) 0.8 10^3/uL (0.0-0.6); ABSOLUTE LYMPHOCYTES (AUTO) 1.7 10^3/uL (0.5-4.7); ABSOLUTE NEUT (AUTO) 12.3 10^3/uL (1.7-8.2); BASOPHILS % (AUTO) 0.4 % (0-2); EOSINOPHILS % (AUTO) 5.1 % (0-6); HEMATOCRIT 40.5 % (36.0-47.0); HEMOGLOBIN 13.7 g/dL (12.0-15.5); LYMPHOCYTES % (AUTO) 10.5 % (13-45); MEAN CORPUSCULAR HEMOGLOBIN 29.4 pg (27.0-33.4); MEAN CORPUSCULAR HGB CONC 33.9 g/dL (32.0-36.0); MEAN CORPUSCULAR VOLUME 87 fl (80-97); MONOCYTES % (AUTO) 6.4 % (3-13); PLATELET COUNT 367 10^3/uL (150-450); RED BLOOD COUNT 4.67 10^6/uL (3.72-5.28); RED CELL DISTRIBUTION WIDTH 14.2 % (11.5-14.0); SEGMENTED NEUTROPHILS % (AUTO) 77.6 % (42-78); TOTAL CELLS COUNTED % (AUTO) 100 %; WHITE BLOOD COUNT 15.9 10^3/uL (4.0-10.5)
[2019-10-26] MEDS: MAGNESIUM SULFATE/D5W 1 GM/100 ML RTUPB IV SCH ×2 (00:55→01:37)
[2019-10-26 01:23] LABS: ALBUMIN 4.3 g/dL (3.5-5.0); ALKALINE PHOSPHATASE 66 U/L (38-126); ANION GAP 9 (5-19); ASPARTATE AMINO TRANSFERASE 28 U/L (14-36); BILIRUBIN,DIRECT 0.2 mg/dL (0.0-0.4); BILIRUBIN,TOTAL 1.1 mg/dL (0.2-1.3); BLOOD UREA NITROGEN 15 mg/dL (7-20); CALCIUM 9.7 mg/dL (8.4-10.2); CARBON DIOXIDE 26 mmol/L (22-30); CHLORIDE 103 mmol/L (98-107); GLUCOSE 110 mg/dL (75-110); POTASSIUM 4.6 mmol/L (3.6-5.0); TOTAL PROTEIN 7.7 g/dL (6.3-8.2)
[2019-10-26 01:23] LABS: APPEARANCE,URINE SLIGHTLY-CLOUDY; BILIRUBIN,URINE NEGATIVE (NEGATIVE); COLOR,URINE YELLOW; GLUCOSE, URINE NEGATIVE (NEGATIVE); KETONES,URINE NEGATIVE (NEGATIVE); PROTEIN,URINE NEGATIVE (NEGATIVE); URINE SPECIFIC GRAVITY 1.025
--- NOTE | 2019-10-26 01:52 | RADIOLOGY REPORT (SQ) ---
Chest 2 view on 10/26/2019 at 1:39 AM CLINICAL INDICATION: Wheezing, chest tightness, decreased air movement COMPARISON: 08/20/2019 FINDINGS: The lungs are clear. Cardiac, hilar and mediastinal contours are within normal limits. Pulmonary vascularity is within normal limits. No bony abnormality is noted. IMPRESSION: No active disease.
[2019-10-26] MEDS ORDERED: LEVALBUTEROL HCL NEB 1.25 MG/3 ML AMPUL NEB ONE (02:21)
--- NOTE | 2019-10-26 02:32 | ER Document Report ---
Entered by MARY BUNDY SCRIBE 10/26/19 0203 Acting as scribe for:TOMMIE GORE IV, MD ED Respiratory Problem - General Chief Complaint: Shortness Of Breath Stated Complaint: COUGH/TIGHT CHEST/FEVER Time Seen by Provider: 10/26/19 00:29 Mode of Arrival: Ambulatory Information source: Patient Notes: This 39 year old female patient with a history of asthma presents to the ED today with complaints of shortness of breath, cough, and severe chest tightness. Relatives at bedside state that the patient has had asthma for the past x1 year, ever since she moved here from [place] and that she did not have any breathing problems while there; they note that she hasn't gone back to visit since she relocated. They state that the patient recently received Prednisone and Amoxicillin. Relatives report that patient has an albuterol inhaler that she received from her visit here in the past, but states that it is all gone. Relatives states that patient does not smoke. Patient also reports right flank pain, but denies any other urinary symptoms. Patient is a Chadian-speaker and does not have a PCP. TRAVEL OUTSIDE OF THE [place] IN LAST 30 DAYS: No - Related Data Allergies/Adverse Reactions: shellfish derived Allergy (Verified 02/04/19 16:14) Home Medications: finished amox and prednisone. albuterol inhaler Past Medical History - General Information source: Patient, Relative - Social History Smoking Status: Never Smoker Cigarette use (# per day): No Chew tobacco use (# tins/day): No Smoking Education Provided: No Family History: Reviewed & Not Pertinent Patient has suicidal ideation: No Patient has homicidal ideation: No Pulmonary Medical History: Reports: Hx Asthma Musculoskeletal Medical History: Reports Hx Arthritis Past Surgical History: Reports: None - Immunizations Immunizations up to date: Yes Hx Diphtheria, Pertussis, Tetanus Vaccination: Yes Review of Systems - Review of Systems Constitutional: No symptoms reported EENT: No symptoms reported Cardiovascular: No symptoms reported Respiratory: See HPI, Cough, Short of breath, Other - Chest tightness Gastrointestinal: No symptoms reported Genitourinary: See HPI, Flank pain Female Genitourinary: No symptoms reported Musculoskeletal: No symptoms reported Skin: No symptoms reported Hematologic/Lymphatic: No symptoms reported Neurological/Psychological: No symptoms reported -: Yes All other systems reviewed and negative Physical Exam - Vital signs Vitals: Temp Pulse Resp BP Pulse Ox 98.1 F 120 H 16 106/70 97 10/26/19 00:17 10/26/19 00:17 10/26/19 00:17 10/26/19 00:17 10/26/19 00:17 Interpretation: Tachycardic - General General appearance: Alert - HEENT Head: Normocephalic, Atraumatic Eyes: Normal Pupils: PERRL - Respiratory Respiratory status: No respiratory distress Chest status: Nontender Breath sounds: Decreased air movement - Diminished breath sounds bilaterally. Chest palpation: Normal - Cardiovascular Rhythm: Tachycardia Heart sounds: Normal auscultation Murmur: No Friction rub: No Gallop: None auscultated - Abdominal Inspection: Normal Distension: No distension Bowel sounds: Normal Tenderness: Nontender - Abdomen soft Organomegaly: No organomegaly - Back Back: Normal, Nontender - Extremities General upper extremity: Normal inspection General lower extremity: Normal inspection - Neurological Neuro grossly intact: Yes - Psychological Associated symptoms: Normal affect, Normal mood - Skin Skin Temperature: Warm Skin Moisture: Dry Skin Color: Normal Course - Re-evaluation Re-evalutation: 10/26/19 04:36 Patient states she is feeling better at this time. Lung sounds are clear bilaterally. No wheezing or rhonchi appreciated on reexamination.. All questi ons answered prior to discharge. Emergency signs and symptoms, reasons to return to the emergency department discussed with patient. - Vital Signs Vital signs: Temp Pulse Resp BP Pulse Ox 98.1 F 120 H 27 H 109/69 97 10/26/19 00:17 10/26/19 00:17 10/26/19 02:01 10/26/19 02:00 10/26/19 02:01 - Laboratory Result Diagrams: 10/26/19 00:35 10/26/19 00:35 Laboratory results interpreted by me: 10/26/19 10/26/19 00:35 00:57 WBC 15.9 H RDW 14.2 H Lymph % (Auto) 10.5 L Absolute Neuts (auto) 12.3 H Absolute Eos (auto) 0.8 H Urine Blood MODERATE H Urine Urobilinogen 2.0 H Discharge - Discharge Clinical Impression: Asthma exacerbation Qualifiers: Asthma severity: unspecified severity Asthma persistence: unspecified Qualified Code(s): J45.901 - Unspecified asthma with (acute) exacerbation Condition: Good Disposition: HOME, SELF-CARE Additional Instructions: Return to the Emergency Department without delay if any worse. Asthma You have been diagnosed as having asthma. This is a condition where there is episodic tightness in the bronchial tubes. Allergies, infections, and polluted or cold air may be contributing factors. Emergency treatment of a severe asthma attack may include adrenaline shots, or bronchodilator aerosol. You may feel lightheaded, have a decreased exercise tolerance and a rapid pulse for an hour or two. Rest and get plenty of fluids. Home treatment of asthma requires bronchodilator drugs. These can be administered by injection, inhalation, or by mouth. Antibiotics and corticosteroids may be required for some patients. You should avoid chemical fumes, dusts, pollens, and exercising in very cold or dry air. If you smoke, stop!! If you develop a fever, increased wheezing, chest pain, or severe shortness of breath, you should contact the doctor immediately HOME CARE INSTRUCTIONS & INFORMATION: Thank you for choosing us for your medical needs. We hope you're satisfied with the care you received. After you leave, you must properly care for your problem and, at the same time, observe its progress. Any condition can change. Some illnesses can change rapidly over hours or days. If your condition worsens, return to the Emergency Department or see your physician promptly. ABOUT YOUR X-RAYS AND EKG'S: If you had an EKG or X-rays taken, they have been read by the Emergency Physician. The X-rays and EKG's will also be read by a Radiologist or Country Singer within 24 hours. If discrepancies are noted, you will be notified by telephone. Please be certain the ED has a correct telephone number & address where you can be reached. Also, realize that some fractures or abnormalities do not show up on initial X-rays. If your symptoms continue, see your physician. ABOUT YOUR LABORATORY TEST: If you had laboratory tests, the results have been reviewed by the Emergency Physician. Some test results (for example cultures) may not be available for several days. You will be contacted if any test result shows you need additional treatment. Please be certain the ED has a correct telephone number and address where you can be reached. ABOUT YOUR MEDICATIONS: You will receive instructions on how to take your medicine on the prescription label you receive. Additional information may be provided by the Pharmacy. If you have questions afterwards, call the ED for clarification or further instructions. Some prescribed medications may cause drowsiness. Do not perform tasks such as driving a car or operating machinery without consulting your Pharmacist. If you feel you need a refill of pain medication, your condition will need re-evaluation. Please do not call for a refill of any medication. ABOUT YOUR SIGNATURE: Signature of this document acknowledges to followin. Understanding that you received emergency treatment and that you may be released before al medical problems are known or treated. Please be certain the ED has a correct phone number & address where you can be reached. 2. Acknowledgement that you will arrange for follow-up care as recommended. 3. Authorization for the Emergency Physician to provide information to your follow-up Physician in order to maximize your care. AT ANY TIME, IF YOUR SYMPTOMS CHANGE SIGNIFICANTLY OR WORSEN OR YOU DEVELOP NEW SYMPTOMS, RETURN TO THE EMERGENCY DEPARTMENT IMMEDIATELY FOR RE-EVALUATION. OUR GOAL IS TO PROVIDE EXCELLENT MEDICAL CARE! WE HOPE THAT WE HAVE MET YOUR EXPECTATIONS DURING YOUR EMERGENCY DEPARTMENT VISIT AND THAT YOU FEEL YOU HAVE RECEIVED EXCELLENT CARE! Prescriptions: Prednisone [Deltasone 20 mg Tablet] 3 tab PO DAILY 4 Days #12 tablet Referrals: SANGEETA HOLT MD [HONORARY] - Follow up as needed Print Language: Chadian I personally performed the services described in the documentation, reviewed and edited the documentation which was dictated to the scribe in my presence, and it accurately records my words and actions.
[2019-10-26] MEDS ORDERED: ALBUTEROL SULFATE HFA (90 MCG/PUFF) 8 GM MDI (1 MDI/ER DISP) IH PRN (04:35)
[2019-10-26 04:56] VITALS: BP 105/72
== END 2019-10-26 04:56 | disposition home or self-care (01) ==
LOC: ER 00:02
DX: J45.901 Unspecified asthma with (acute) exacerbation (principal); R06.02 Shortness of breath; R05 Cough; R07.9 Chest pain, unspecified; R50.9 Fever, unspecified; R10.9 Unspecified abdominal pain; Z79.899 Other long term (current) drug therapy
CPT/HCPCS: 94640 ×2; 99285; 96361; 96375; 96365; 36415; 84702; 83690; 83735; 85025; 80053; 81001; 71046; J2930; J3475; J7030; J3490 ×2; J7620

== ENCOUNTER 2020-02-12 15:04 | Emergency (ER) | payer SELFPAY ==
[2020-02-12] MEDS ORDERED: METHYLPREDNISOLONE INJ 125 MG/2 ML SDV IV ONE (17:00)
[2020-02-12] MEDS ORDERED: IPRATROPIUM/ALBUTEROL 0.5-2.5 MG/3 ML AMPUL NEB ONE (17:00)
--- NOTE | 2020-02-12 17:13 | ER Document Report ---
ED General - General Chief Complaint: Cold Symptoms Stated Complaint: SHORTNESS OF BREATH Time Seen by Provider: 02/12/20 16:24 TRAVEL OUTSIDE OF THE [place] IN LAST 30 DAYS: No - HPI Notes: 39-year-old female who is Lao-speaking only but the use of Genevieve was able to communicate with patient with a history of asthma presents to the emergency room for evaluation of difficulty breathing for the 2 to 3 months over the course of the last year. Patient has been seen by her primary care provider who advised her that she did have an asthma exacerbation patient states she does take a daily inhaled corticosteroid without full relief. Patient reports she is also having in the last week with slight nausea, vomiting, diarrhea, headache, fatigue and weakness. Patient states she has had multiple interactions with patients that do not wear a mask on routine basis during the COVID 19 pandemic. States she was like to be tested for COVID today. states her symptoms have become progressively better but they come and go. No [id number] medications have been tried. Patient states that she was co-pay tested over a month ago which came back negative. Denies any new medications foods or travel. Eating and drinking without any issues. Patient states her last menstrual cycle was January 20, 2020. 7 para 1. Patient is not on any control. Denies fevers, chills, chest pain,palpitations, shortness of breath, dyspnea, abdominal pain, hematuria,blurred vision, double vision, loss of vision, speech changes, LH, dizziness, syncope, headaches, wheezing, ST, URI, neck pain, weakness, bowel or bladder dysfunction, saddle anesthesia, numbness or tingling in bilateral upper or lower extremities equally, muscle paralysis, weakness in bilateral upper or lower extremities equally or rash. Denies IV drug use. - Related Data Allergies/Adverse Reactions: shellfish derived Allergy (Verified 02/04/19 16:14) Past Medical History - General Information source: Patient - Social History Smoking Status: Never Smoker Family History: Reviewed & Not Pertinent Patient has homicidal ideation: No Pulmonary Medical History: Reports: Hx Asthma Renal/ Medical History: Denies: Hx Peritoneal Dialysis Musculoskeletal Medical History: Reports Hx Arthritis - Immunizations Immunizations up to date: Yes Hx Diphtheria, Pertussis, Tetanus Vaccination: Yes Review of Systems - Review of Systems Constitutional: See HPI EENT: No symptoms reported Cardiovascular: No symptoms reported Respiratory: See HPI Gastrointestinal: See HPI Genitourinary: No symptoms reported Female Genitourinary: No symptoms reported Musculoskeletal: No symptoms reported Skin: No symptoms reported Hematologic/Lymphatic: No symptoms reported Neurological/Psychological: No symptoms reported Physical Exam - Vital signs Vitals: Temp Pulse Resp BP Pulse Ox 98.2 F 77 18 103/67 97 02/12/20 16:03 02/12/20 16:03 02/12/20 16:03 02/12/20 16:03 02/12/20 16:03 - Notes Notes: MEDICATIONS: I agree with the patient medications as charted by the RN. ALLERGIES: I agree with the allergies as charted by the RN. PAST MEDICAL HISTORY/PAST SURGICAL HISTORY: Reviewed and agree as charted by RN. SOCIAL HISTORY: Reviewed and agree as charted by RN. FAMILY HISTORY: No significant familial comorbid conditions directly related to patient complaint EXAM: Reviewed vital signs as charted by RN. PHYSICAL EXAMINATION: reviewed vital signs by RN GENERAL: Well-appearing, well-nourished and in no acute distress. HEAD: Atraumatic, normocephalic. EYES: Pupils equal round and reactive to light, extraocular movements intact, conjunctiva are normal. ENT: Nares patent, oropharynx clear without exudates. Moist mucous membranes. NECK: Normal range of motion, supple without lymphadenopathy LUNGS: Wheezing in upper lobes. After breathing treatment and Solu-Medrol on reevaluation, breath sounds clear to auscultation bilaterally and equal. No w heezes rales or rhonchi. HEART: Regular rate and rhythm without murmurs ABDOMEN: Soft, nontender, nondistended abdomen. No guarding, no rebound. No masses appreciated. Female : deferred Musculoskeletal: Normal range of motion, no pitting or edema. No cyanosis. NEUROLOGICAL: Cranial nerves grossly intact. Normal speech, normal gait. Normal sensory, motor exams PSYCH: Normal mood, normal affect. SKIN: Warm, Dry, normal turgor, no rashes or lesions noted. Course - Re-evaluation Re-evalutation: 02/12/20 19:15 Afebrile vital stable no distress. Nurses notes reviewed. CBC negative for leukocytosis or anemia,. CMP negative for hepatic or renal dysfunction, no electrolyte disturbances. X-ray and urinalysis unremarkable. Urine quant negative. Patient did have wheezing on initial examination, DuoNeb and Solu-Me drol were given. On reevaluation breath sounds clear to auscultation throughout. Patient states she does feel much better. 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 Rapid flu and rapid strep negative. Discussed with patient that she has to maintain self quarantining until culture results have resulted, washing hands frequently. She also needs to wear a mask on a routine basis. After performing a Medical Screening Examination, I estimate there is LOW risk for ACUTE CORONARY SYNDROME, PULMONARY EMBOLI, RESPIRATORY FAILURE, SEPSIS OR MENINGITIS, thus I consider the discharge disposition reasonable. I have reevaluated this patient multiple times and no significant life threatening changes are noted. The patient and I have discussed the diagnosis and risks, and we agree with discharging home with close follow- up. We also discussed returning to the Emergency Department immediately if new or worsening symptoms occur. We have discussed the symptoms which are most concerning (e.g., changing or worsening pain, trouble swallowing or breathing, neck stiffness, fever) that necessitate immediate return. After performing a Medical Screening Examination, I estimate there is LOW risk for ACUTE APPENDICITIS, BOWEL OBSTRUCTION, ACUTE CHOLECYSTITIS, PERFORATED DIVERTICULITIS, INCARCERATED HERNIA, PANCREATITIS, PELVIC INFLAMMATORY DISEASE, PERFORATED ULCER, ECTOPIC , or TUBO-OVARIAN ABSCESS, thus I consider the discharge disposition reasonable. Also, there is no evidence or peritonitis, sepsis, or toxicity. I have reevaluated this patient multiple times and no significant life threatening changes are noted. The patient and I have discussed the diagnosis and risks, and we agree with discharging home with close follow-up with the understanding that symptoms and presentations can change. We also discussed returning to the Emergency Department immediately if new or worsening symptoms occur. We have discussed the symptoms which are most concerning (e.g., bloody stool, fever, changing or worsening pain, vomiting) that necessitate immediate return. - Vital Signs Vital signs: Temp Pulse Resp BP Pulse Ox 98.2 F 77 18 103/67 97 02/12/20 16:03 02/12/20 16:03 02/12/20 16:03 02/12/20 16:03 02/12/20 16:03 - Laboratory Result Diagrams: 02/12/20 17:04 02/12/20 17:04 Laboratory results interpreted by me: 06/18/20 06/18/20 17:04 17:04 Eos % (Auto) 14.5 H Absolute Eos (auto) 1.1 H Sodium 134.6 L Anion Gap 3 L Discharge - Discharge Clinical Impression: Asthma exacerbation, COVID-19 virus test result unknown, Gastroenteritis Condition: Stable Disposition: HOME, SELF-CARE Instructions: COVID-19 Guidance for Persons Under Investigation, Asthma ([facility]), Bronchodilators ([facility]), Gastroenteritis (adult) ([facility]), Clear Liquid Diet ([facility]) Additional Instructions: Your labs today were normal as well as your chest x-ray. Your wheezing was resolved after breathing treatment and Solu-Medrol. You will be discharged home with a rescue inhaler as well as a 5-day steroid course. Follow bland diet. Take [id number] Bentyl. Please follow-up with your primary care provider in the next 24 to 48 hours.You have been evaluated for complaints or symptoms which could reflect infection with coronavirus/Covid-19 disease. In the emergency department we are incapable of testing every patient and given the prevalence of the disease in this community you should assume you are infected. Please stay at home with minimal interaction to others, wash your hands, practice social distancing while at home, and remained at home without any travel outside of the home for: 1. At least 3 days (72 hours) have passed since recovery defined as resolution of fever without the use of fever-reducing medications and improvement in respiratory symptoms (e.g., cough, shortness of breath) AND 2. At least 7 days have passed since symptoms first appeared. Prescriptions: Albuterol Sulfate [Proair Respiclick] 90 mcg IH Q4HP PRN #1 [email or web address] PRN Reason: Prednisone [Deltasone 20 mg Tablet] 3 tab PO DAILY 5 Days #15 tablet Referrals: PAYAM MARIE MD [COMMUNITY BASED STAFF] - Follow up as needed LU MO MD [ACTIVE STAFF] - Follow up as needed
[2020-02-12 17:14] LABS: ABSOLUTE BASOPHILS # (AUTO) 0.1 10^3/uL (0.0-0.2); ABSOLUTE EOSINOPHILS # (AUTO) 1.1 10^3/uL (0.0-0.6); ABSOLUTE LYMPHOCYTES (AUTO) 2.8 10^3/uL (0.5-4.7); ABSOLUTE MONOCYTES (AUTO) 0.4 10^3/uL (0.1-1.4); ABSOLUTE NEUT (AUTO) 3.4 10^3/uL (1.7-8.2); BASOPHILS % (AUTO) 0.9 % (0-2); EOSINOPHILS % (AUTO) 14.5 % (0-6); HEMATOCRIT 38.7 % (36.0-47.0); LYMPHOCYTES % (AUTO) 35.5 % (13-45); MEAN CORPUSCULAR HEMOGLOBIN 29.8 pg (27.0-33.4); MEAN CORPUSCULAR HGB CONC 33.7 g/dL (32.0-36.0); MEAN CORPUSCULAR VOLUME 89 fl (80-97); MONOCYTES % (AUTO) 5.7 % (3-13); PLATELET COUNT 342 10^3/uL (150-450); RED BLOOD COUNT 4.38 10^6/uL (3.72-5.28); RED CELL DISTRIBUTION WIDTH 13.4 % (11.5-14.0); SEGMENTED NEUTROPHILS % (AUTO) 43.4 % (42-78); TOTAL CELLS COUNTED % (AUTO) 100 %; WHITE BLOOD COUNT 7.8 10^3/uL (4.0-10.5)
[2020-02-12 17:32] LABS: ALBUMIN 3.7 g/dL (3.5-5.0); ALKALINE PHOSPHATASE 60 U/L (38-126); ASPARTATE AMINO TRANSFERASE 19 U/L (14-36); BILIRUBIN,TOTAL 0.9 mg/dL (0.2-1.3); BLOOD UREA NITROGEN 14 mg/dL (7-20); CARBON DIOXIDE 27 mmol/L (22-30); CHLORIDE 105 mmol/L (98-107); GLUCOSE 91 mg/dL (75-110); POTASSIUM 4.4 mmol/L (3.6-5.0); TOTAL PROTEIN 6.5 g/dL (6.3-8.2)
--- NOTE | 2020-02-12 17:32 | RADIOLOGY REPORT (SQ) ---
EXAM DESCRIPTION: CHEST SINGLE VIEW IMAGES COMPLETED DATE/TIME: 02/12/2020 5:21 pm REASON FOR STUDY: wheezing COMPARISON: 10/26/2019 EXAM PARAMETERS: NUMBER OF VIEWS: One view. TECHNIQUE: Single frontal radiographic view of the chest acquired. RADIATION DOSE: NA LIMITATIONS: None. FINDINGS: LUNGS AND PLEURA: No opacities, masses or pneumothorax. No pleural effusion. MEDIASTINUM AND HILAR STRUCTURES: No masses. Contour normal. HEART AND VASCULAR STRUCTURES: Heart normal in size. Normal vasculature. BONES: No acute findings. HARDWARE: None in the chest. OTHER: No other significant finding. IMPRESSION: NO ACUTE RADIOGRAPHIC FINDING IN THE CHEST. TECHNICAL DOCUMENTATION: JOB ID: [id number] 2010 [employer]- All Rights Reserved Reading location - IP/workstation name: [email or web address]
[2020-02-12 17:38] LABS: ANION GAP 3 (5-19)
[2020-02-12 17:52] LABS: A TYPE INFLUENZA AG NEGATIVE (NEGATIVE); B INFLUENZA AG NEGATIVE (NEGATIVE)
--- NOTE | 2020-02-12 18:46 | EKG REPORT ---
SEVERITY:- NORMAL ECG - SINUS RHYTHM : Confirmed by: Sarath Nieves MD 12-Feb-2020 18:46:21
[2020-02-12 19:12] VITALS: BP 106/61
== END 2020-02-12 19:12 | disposition home or self-care (01) ==
LOC: ER 15:04
DX: J45.901 Unspecified asthma with (acute) exacerbation (principal); K52.9 Noninfective gastroenteritis and colitis, unspecified; R11.2 Nausea with vomiting, unspecified; R51 Headache; R53.83 Other fatigue; R53.1 Weakness; Z79.51 Long term (current) use of inhaled steroids; Z91.013 Allergy to seafood; Z20.828 Contact with and (suspected) exposure to other viral communicable diseases
CPT/HCPCS: 93005; 94640; 99285; 96374; 36415; 87070; 87880; 85025; 87635; 87077; 80053; 87804; 71045; 93010; J2930; J7620; C9803

== ENCOUNTER 2020-02-28 23:51 | Emergency (ER) | payer SELFPAY ==
[2020-02-29 02:06] LABS: APPEARANCE,URINE CLOUDY; BILIRUBIN,URINE NEGATIVE (NEGATIVE); COLOR,URINE YELLOW; GLUCOSE, URINE NEGATIVE (NEGATIVE); KETONES,URINE NEGATIVE (NEGATIVE); LEUKOCYTE ESTERASE,URINE LARGE (NEGATIVE); NITRITE,URINE NEGATIVE (NEGATIVE); PROTEIN,URINE 100 mg/dL (NEGATIVE); URINE SPECIFIC GRAVITY 1.011; UROBILINOGEN,URINE NEGATIVE mg/dL (<2.0)
[2020-02-29 02:50] LABS: ABSOLUTE BASOPHILS # (AUTO) 0.1 10^3/uL (0.0-0.2); ABSOLUTE LYMPHOCYTES (AUTO) 1.7 10^3/uL (0.5-4.7); ABSOLUTE MONOCYTES (AUTO) 0.7 10^3/uL (0.1-1.4); ABSOLUTE NEUT (AUTO) 10.4 10^3/uL (1.7-8.2); BASOPHILS % (AUTO) 0.5 % (0-2); HEMATOCRIT 35.8 % (36.0-47.0); HEMOGLOBIN 12.3 g/dL (12.0-15.5); MEAN CORPUSCULAR HEMOGLOBIN 29.9 pg (27.0-33.4); MEAN CORPUSCULAR HGB CONC 34.4 g/dL (32.0-36.0); MEAN CORPUSCULAR VOLUME 87 fl (80-97); MONOCYTES % (AUTO) 5.3 % (3-13); PLATELET COUNT 367 10^3/uL (150-450); RED BLOOD COUNT 4.13 10^6/uL (3.72-5.28); RED CELL DISTRIBUTION WIDTH 13.9 % (11.5-14.0); SEGMENTED NEUTROPHILS % (AUTO) 75.2 % (42-78); TOTAL CELLS COUNTED % (AUTO) 100 %; WHITE BLOOD COUNT 13.9 10^3/uL (4.0-10.5)
[2020-02-29 03:08] LABS: ALBUMIN 3.9 g/dL (3.5-5.0); ALKALINE PHOSPHATASE 58 U/L (38-126); ANION GAP 9 (5-19); ASPARTATE AMINO TRANSFERASE 20 U/L (14-36); BILIRUBIN,TOTAL 1.1 mg/dL (0.2-1.3); BLOOD UREA NITROGEN 18 mg/dL (7-20); CALCIUM 9.3 mg/dL (8.4-10.2); CARBON DIOXIDE 25 mmol/L (22-30); CHLORIDE 104 mmol/L (98-107); GLUCOSE 132 mg/dL (75-110); POTASSIUM 3.6 mmol/L (3.6-5.0); TOTAL PROTEIN 6.9 g/dL (6.3-8.2)
--- NOTE | 2020-02-29 04:36 | ER Document Report ---
ED GI/ - General Chief Complaint: Possible Kidney Stone Stated Complaint: FLANK PAIN,URINARY PROBLEM Time Seen by Provider: 02/29/20 03:54 Primary Care Provider: LU MO MD [ACTIVE STAFF] - Follow up as needed Mode of Arrival: Ambulatory Information source: Patient Notes: 39-year-old female patient otherwise healthy presents with right sided flank pain over the last several days worsening today. She also complains of dysuria and urinary frequency. She states she is not urinating much. She reports low- grade fevers at home highest was 100. She denies any history of kidney stones. Denies any nausea, vomiting, diarrhea, abnormal discharge or pelvic pain. TRAVEL OUTSIDE OF THE [place] IN LAST 30 DAYS: No - Related Data Allergies/Adverse Reactions: shellfish derived Allergy (Verified 02/04/19 16:14) Past Medical History - General Information source: Patient - Social History Smoking Status: Never Smoker Frequency of alcohol use: None Drug Abuse: None, Heroin Lives with: Alone Family History: Reviewed & Not Pertinent Pulmonary Medical History: Reports: Hx Asthma Renal/ Medical History: Denies: Hx Peritoneal Dialysis Musculoskeletal Medical History: Reports Hx Arthritis Surgical Hx: Negative - Immunizations Immunizations up to date: Yes Hx Diphtheria, Pertussis, Tetanus Vaccination: Yes Review of Systems - Review of Systems Constitutional: Chills, Fever EENT: No symptoms reported Cardiovascular: No symptoms reported Respiratory: No symptoms reported Gastrointestinal: Abdominal pain, Nausea Genitourinary: Dysuria, Flank pain, Hematuria Female Genitourinary: No symptoms reported Musculoskeletal: No symptoms reported Skin: No symptoms reported Hematologic/Lymphatic: No symptoms reported Neurological/Psychological: No symptoms reported Physical Exam - Vital signs Vitals: Temp Pulse Resp BP Pulse Ox 99.8 F 100 18 114/72 99 02/29/20 00:37 02/29/20 00:37 02/29/20 00:37 02/29/20 00:37 02/29/20 00:37 - Notes Notes: PHYSICAL EXAMINATION: GENERAL: Appears to be stated age, appears to be in mild distress. HEAD: Atraumatic, normocephalic. EYES: Pupils equal round and reactive to light, extraocular movements intact, conjunctiva are normal. ENT: Nares patent, oropharynx clear without exudates. Moist mucous membranes. NECK: Normal range of motion, supple without lymphadenopathy LUNGS: Breath sounds clear to auscultation bilaterally and equal. No wheezes rales or rhonchi. HEART: Regular rate and rhythm without murmurs ABDOMEN: Soft, nontender, nondistended abdomen. No guarding, no rebound. No masses appreciated. Female : No CVA tenderness. Musculoskeletal: Normal range of motion, no pitting or edema. No cyanosis. NEUROLOGICAL: Cranial nerves grossly intact. Normal speech, normal gait. Normal sensory, motor exams PSYCH: Normal mood, normal affect. SKIN: Warm, Dry, normal turgor, no rashes or lesions noted. Course - Re-evaluation Re-evalutation: 02/29/20 04:54 Patient has leukocytosis, white blood count 13.9. She has an infected urine. She is febrile to 100 F. She will be sent for a CT of the abdomen and pelvis to evaluate for renal stone as she is complaining of right flank pain. She also given IV fluids, IV Rocephin and IV Toradol. Will reevaluate once all testing is complete. Laboratory 02/29/20 02/29/20 02/29/20 01:45 02:38 02:38 WBC 13.9 H RBC 4.13 Hgb 12.3 Hct 35.8 L MCV 87 MCH 29.9 MCHC 34.4 RDW 13.9 Plt Count 367 Lymph % (Auto) 12.0 L [place] % (Auto) 5.3 Eos % (Auto) 7.0 H Baso % (Auto) 0.5 Absolute Neuts (auto) 10.4 H Absolute Lymphs (auto) 1.7 Absolute Monos (auto) 0.7 Absolute Eos (auto) 1.0 H Absolute Basos (auto) 0.1 Seg Neutrophils % 75.2 Sodium 137.7 Potassium 3.6 Chloride 104 Carbon Dioxide 25 Anion Gap 9 BUN 18 Creatinine 0.68 Est GFR ( Amer) > 60 Est GFR (MDRD) Non-Af > 60 Glucose 132 H Calcium 9.3 Total Bilirubin 1.1 Direct Bilirubin 0.0 Neonat Total Bilirubin Not Reportable Neonat Direct Bilirubin Not Reportable Neonat Indirect Bili Not Reportable AST 20 ALT 13 Alkaline Phosphatase 58 Total Protein 6.9 Albumin 3.9 Lipase 106.5 Serum HCG, Qual Urine Color YELLOW Urine Appearance CLOUDY Urine pH 5.0 Ur Specific [place] 1.011 Urine Protein 100 H Urine Glucose (UA) NEGATIVE Urine Ketones NEGATIVE Urine Blood LARGE H Urine Nitrite NEGATIVE Urine Bilirubin NEGATIVE Urine Urobilinogen NEGATIVE Ur Leukocyte Esterase LARGE H Urine WBC (Auto) >182 Urine RBC (Auto) 117 Urine Bacteria (Auto) 2+ Urine WBC Clumps MOD Squamous Epi Cells Auto 3 Urine Mucus (Auto) RARE Urine Ascorbic Acid NEGATIVE Urine HCG, Qual NEGATIVE 02/29/20 02:38 WBC RBC Hgb Hct MCV MCH MCHC RDW Plt Count Lymph % (Auto) [place] % (Auto) Eos % (Auto) Baso % (Auto) Absolute Neuts (auto) Absolute Lymphs (auto) Absolute Monos (auto) Absolute Eos (auto) Absolute Basos (auto) Seg Neutrophils % Sodium Potassium Chloride Carbon Dioxide Anion Gap BUN Creatinine Est GFR ( Amer) Est GFR (MDRD) Non-Af Glucose Calcium Total Bilirubin Direct Bilirubin Neonat Total Bilirubin Neonat Direct Bilirubin Neonat Indirect Bili AST ALT Alkaline Phosphatase Total Protein Albumin Lipase Serum HCG, Qual NEGATIVE Urine Color Urine Appearance Urine pH Ur Specific [place] Urine Protein Urine Glucose (UA) Urine Ketones Urine Blood Urine Nitrite Urine Bilirubin Urine Urobilinogen Ur Leukocyte Esterase Urine WBC (Auto) Urine RBC (Auto) Urine Bacteria (Auto) Urine WBC Clumps Squamous Epi Cells Auto Urine Mucus (Auto) Urine Ascorbic Acid Urine HCG, Qual Abdomen/Pelvis CT 02/29/20 04:55 IMPRESSION: No acute process is seen within the abdomen or pelvis. Patient's work-up today consistent with pyelonephritis. She has fever, elevated white blood count and infected urine. She was given medications as outlined above. CT abdomen pelvis was negative, no kidney stones noted. Patient feels improved and will be discharged home on oral antibiotics. Strict ED return precautions discussed, patient verbalized understanding and agreement with plan. - Vital Signs Vital signs: Temp Pulse Resp BP Pulse Ox 98.7 F 75 16 95/65 L 100 02/29/20 07:11 02/29/20 07:11 02/29/20 07:11 02/29/20 07:11 02/29/20 07:11 - Laboratory Result Diagrams: 02/29/20 02:38 02/29/20 02:38 Laboratory results interpreted by me: 02/29/20 02/29/20 02/29/20 01:45 02:38 02:38 WBC 13.9 H Hct 35.8 L Lymph % (Auto) 12.0 L Eos % (Auto) 7.0 H Absolute Neuts (auto) 10.4 H Absolute Eos (auto) 1.0 H Glucose 132 H Urine Protein 100 H Urine Blood LARGE H Ur Leukocyte Esterase LARGE H Discharge - Discharge Clinical Impression: Flank pain, Pyelonephritis UTI (urinary tract infection) Qualifiers: Urinary tract infection type: site unspecified Hematuria presence: with hematuria Qualified Code(s): N39.0 - Urinary tract infection, site not specified Condition: Stable Disposition: HOME, SELF-CARE Instructions: Pyelonephritis ([facility]), Urinary Tract Infection ([facility]) Additional Instructions: Please take medications as prescribed. It is very important that you increase your fluid intake. Follow-up with your primary care doctor. Regarding your complaints of abnormal breathing I have given you the phone number for a roll skinner which is a lung specialist. Let them know you have been seen in the emergency department and also by multiple primary care doctors and no one has been able to determine why you you feel like your breathing is abnormal. Return to the emergency department with new or worsening symptoms to include vomiting, unable to keep down your medication or worsening fever. Be sure to take ibuprofen 600 mg every 6 hours as this will help keep your fever down and also help with your pain. Prescriptions: Hydrocodone/Acetaminophen [[place] 5-325 mg Tablet] 1 tab PO Q6HP PRN #12 tablet PRN Reason: Sulfamethoxazole/Trimethoprim [Bactrim Ds Tablet] 1 tab PO BID 14 Days #28 tablet Forms: Return to Work Referrals: LU MO MD [ACTIVE STAFF] - Follow up as needed
[2020-02-29] MEDS ORDERED: KETOROLAC TROMETHAMINE INJ/PF 30 MG/1 ML SDV IV ONE (04:52)
[2020-02-29] MEDS ORDERED: CEFTRIAXONE 1 GM/D5W RTU 1 GM/50 ML RTUPB IV ONE (04:52)
[2020-02-29] MEDS ORDERED: NORMAL SALINE 1000 ML 1,000 ML IV ONE (04:52)
--- NOTE | 2020-02-29 06:22 | RADIOLOGY REPORT (SQ) ---
CT ABDOMEN AND PELVIS WITHOUT INTRAVENOUS CONTRAST: 02/29/2020 5:19 AM CDT HISTORY: 39-year old with right-sided flank pain, concern for urinary tract infection. COMPARISON: None available TECHNIQUE: Axial contiguous images were obtained from the lung bases to the proximal femurs without intravenous contrast administered. Sagittal and coronal reconstructions were also obtained and reviewed. This exam was performed according to our departmental dose-optimization program, which includes automated exposure control, adjustment of the mA and/or KV according to the patient's size and/or use of iterative reconstruction technique. FINDINGS: The lung bases appear clear without evidence of a focal consolidative airspace opacity or effusions. Bilateral breast implants are seen. Evaluation of the solid organs is limited by the lack of intravenous contrast. The visualized hepatic parenchyma is unremarkable. The gallbladder demonstrates no evidence of calcified gallstones. The spleen and pancreas are normal in contour. The bilateral adrenal glands appear unremarkable. Both kidneys demonstrate no evidence of hydronephrosis. No renal or ureteral calculi are seen. The urinary bladder is mildly distended, and appears grossly unremarkable. The uterus is present. The stomach is not well distended. The small bowel loops appear unremarkable. No pericolonic inflammatory stranding is seen. The appendix appears unremarkable. There is no evidence of pneumoperitoneum or free fluid. The aorta and IVC appear normal in size. No significantly enlarged lymph nodes are seen in the abdomen or pelvis. Review of the bone show no evidence of any suspicious lytic or blastic lesions. IMPRESSION: No acute process is seen within the abdomen or pelvis.
[2020-02-29 07:12] VITALS: BP 95/65
== END 2020-02-29 07:12 | disposition home or self-care (01) ==
LOC: ER 23:51
DX: N12 Tubulo-interstitial nephritis, not specified as acute or chronic (principal); N39.0 Urinary tract infection, site not specified; R50.9 Fever, unspecified; R10.9 Unspecified abdominal pain; Z87.442 Personal history of urinary calculi; Z91.013 Allergy to seafood
CPT/HCPCS: 99284; 96375; 96365; 36415; 87086; 83690; 84703; 85025; 81025; 87088; 80053; 81001; 74176; J1885; J7030; J0696; 87186

== ENCOUNTER → 2020-04-16 | Outpatient (CLI) | payer SELFPAY ==
[2020-04-16 14:43] LABS: ABSOLUTE BASOPHILS # (AUTO) 0.1 10^3/uL (0.0-0.2); ABSOLUTE EOSINOPHILS # (AUTO) 1.5 10^3/uL (0.0-0.6); ABSOLUTE LYMPHOCYTES (AUTO) 1.9 10^3/uL (0.5-4.7); ABSOLUTE MONOCYTES (AUTO) 0.4 10^3/uL (0.1-1.4); ABSOLUTE NEUT (AUTO) 4.6 10^3/uL (1.7-8.2); BASOPHILS % (AUTO) 0.6 % (0-2); EOSINOPHILS % (AUTO) 17.5 % (0-6); HEMATOCRIT 40.9 % (36.0-47.0); HEMOGLOBIN 14.3 g/dL (12.0-15.5); LYMPHOCYTES % (AUTO) 22.4 % (13-45); MEAN CORPUSCULAR HEMOGLOBIN 30.6 pg (27.0-33.4); MEAN CORPUSCULAR VOLUME 87 fl (80-97); MONOCYTES % (AUTO) 4.9 % (3-13); PLATELET COUNT 358 10^3/uL (150-450); RED BLOOD COUNT 4.68 10^6/uL (3.72-5.28); RED CELL DISTRIBUTION WIDTH 13.8 % (11.5-14.0); SEGMENTED NEUTROPHILS % (AUTO) 54.6 % (42-78); TOTAL CELLS COUNTED % (AUTO) 100 %; WHITE BLOOD COUNT 8.5 10^3/uL (4.0-10.5)
[2020-04-16 15:02] LABS: INTERNATIONAL RATION (INR) 0.97; PROTHROMBIN TIME 13.1 SEC (11.4-15.4)
[2020-04-16 15:07] LABS: ANION GAP 6 (5-19); BLOOD UREA NITROGEN 12 mg/dL (7-20); CALCIUM 9.5 mg/dL (8.4-10.2); CARBON DIOXIDE 27 mmol/L (22-30); CHLORIDE 105 mmol/L (98-107); GLUCOSE 87 mg/dL (75-110); POTASSIUM 4.6 mmol/L (3.6-5.0)
--- NOTE | 2020-04-16 17:02 | RADIOLOGY REPORT (SQ) ---
EXAM DESCRIPTION: CHEST PA/LATERAL IMAGES COMPLETED DATE/TIME: 04/16/2020 2:35 pm REASON FOR STUDY: ACUTE DYSPNEA COMPARISON: 02/12/2020 TECHNIQUE: Frontal and lateral radiographic views of the chest acquired. NUMBER OF VIEWS: Two view. LIMITATIONS: None. FINDINGS: LUNGS AND PLEURA: No opacities, masses or pneumothorax. No pleural effusion. MEDIASTINUM AND HILAR STRUCTURES: No masses or contour abnormalities. HEART AND VASCULAR STRUCTURES: Heart normal size. No evidence for failure. BONES: No acute findings. HARDWARE: None in the chest. OTHER: No other significant finding. IMPRESSION: NO SIGNIFICANT RADIOGRAPHIC FINDING IN THE CHEST. TECHNICAL DOCUMENTATION: JOB ID: [id number] 2010 [employer]- All Rights Reserved Reading location - IP/workstation name: [email or web address]
== END ==
LOC: OD 14:05
PROVIDERS: ATTEND Internal Medicine Pulmonary Disease
DX: R06.00 Dyspnea, unspecified (principal)
CPT/HCPCS: 36415; 71046; 80048; 85025; 85610; 85730